=== PATIENT | female | born 1990 | race Caucasian/White ===

== ENCOUNTER 2017-07-30 13:40 | Inpatient (IN) | payer MEDICAID, OTHER ==
[2017-07-30] MEDS ORDERED: Sodium Chloride 0.9% 1,000 ML IV ONE (14:49)
--- NOTE | 2017-07-30 14:56 | C.PDOC ---
History Of Present Illness 27 y/o female with past medical history of possible Crohn's disease (prior evaluation in an ER, CT findings concerning for Crohn's but patient did not follow up with GI) presents to emergency department with complaint of c/o hematuria, bloody bowel movements and RLQ abdominal pain since yesterday. Abd pain is dull/achey and intermittent. Patient notes 2 different episodes; first had hematuria, then bloody BMs. She denies abdominal pain worsening with BM. ( +) 4 episodes of diarrhea yesterday. Patient denies fever, changes in diet, recent travel or sick contacts, fever/chills, dysuria, vomiting, chest pain, SOB. Time Seen by Provider: 07/30/17 14:03 Chief Complaint (Nursing): Abdominal Pain History Per: Patient History/Exam Limitations: no limitations Onset/Duration Of Symptoms: Days Current Symptoms Are (Timing): Still Present Severity: Mild Location Of Pain/Discomfort: Diffuse Radiation Of Pain To:: None Quality Of Discomfort: Sharp, "Pain" Associated Symptoms: Diarrhea, Urinary Symptoms (hematuria). denies: Fever, Vomiting, Back Pain Recent travel outside of the [place]: No Abnormal Vaginal Bleeding: No Past Medical History Reviewed: Historical Data, Nursing Documentation, Vital Signs Vital Signs: Last Vital Signs Temp 98.1 F 08/02/17 07:53 Pulse 61 08/02/17 07:53 Resp 20 08/02/17 07:53 BP 98/60 L 08/02/17 07:53 Pulse Ox 97 08/02/17 07:53 - Medical History PMH: Crohn's Disease (possible - no colonoscopy or GI followup) Other Surgeries: surgery as (4 months premature) for "twisted intestines " Family History: States: No Known Family Hx - Social History Hx Alcohol Use: No Hx Substance Use: No - Immunization History Hx Tetanus Toxoid Vaccination: No Hx Influenza Vaccination: No Hx Pneumococcal Vaccination: No Review Of Systems Except As Marked, All Systems Reviewed And Found Negative. Constitutional: Negative for: Fever, Chills Cardiovascular: Negative for: Chest Pain, Palpitations Respiratory: Negative for: Cough, Shortness of Breath, Wheezing Gastrointestinal: Positive for: Diarrhea, Hematochezia. Negative for: Nausea, Vomiting, Abdominal Pain, Melena Genitourinary: Positive for: Frequency, Hematuria. Negative for: Dysuria, Vaginal Discharge, Vaginal Bleeding Skin: Negative for: Rash Physical Exam - Physical Exam Appears: Well, Non-toxic, No Acute Distress Skin: Normal Color, Dry, No Rash Oral Mucosa: Moist Cardiovascular: Rhythm Regular Respiratory: Normal Breath Sounds, No Rales, No Rhonchi, No Wheezing Gastrointestinal/Abdominal: Bowel Sounds, Soft, Tenderness (mild diffuse TTP, (- ) McBurney's), No Distention, No Guarding, No Rebound Rectal: Normal Exam, Rectal Tone (normal), No Heme Positive, Heme Negative, No Hemorrhoids, No Mass, No Tenderness, Other (no fissuress) Back: Normal Inspection, No CVA Tenderness Extremity: Normal ROM Neurological/Psych: Oriented x3 ED Course And Treatment - Laboratory Results Result Diagrams: 08/02/17 07:50 08/02/17 07:50 O2 Sat by Pulse Oximetry: 100 (RA) Pulse Ox Interpretation: Normal - CT Scan/US ct scan abd/pelvis CT/US Interpretation: Accession No. : [id number]. Patient Name / ID : PATRICK RAM / [id number]. Exam Date : 07/30/2017 17:22:06 ( Approved ). Study Comment : Sex / Age : F / [id number]. Creator : Jennifer Reddy. Dictator : Amalia Villalba MD. Lawn Care Professional : Chief Payroll Clerk : Amalia Villalba MD. Approver2 : Report Date : 07/30/2017 17:43:14. My Comment : . This report is currently processing and HAS NOT BEEN OFFICIALLY SIGNED BY THE PHYSICIAN - ESTIMATED TIME OF APPROVAL IS 07/30/2017 18:11. PROCEDURE: CT Abdomen and Pelvis with contrast. HISTORY: ABD PAIN, RECTAL BLEEDING, POSSIBLE CROHNS. COMPARISON: None. TECHNIQUE: Contrast dose: 100 mL Omnipaque 350. Axial and reformatted coronal and sagittal CT images of the abdomen and pelvis were obtained after IV and oral contrast administration. Radiation dose: Total exam DLP = 390.77 mGy-cm. This CT exam was performed using one or more of the following dose reduction techniques: Automated exposure control, adjustment of the mA and/or kV according to patient size, and/ or use of iterative reconstruction technique. FINDINGS: LOWER THORAX: Unremarkable. LIVER: Unremarkable. No gross lesion or ductal dilatation. GALLBLADDER AND BILE DUCTS: Unremarkable. PANCREAS: Unremarkable. No gross lesion or ductal dilatation. SPLEEN: Unremarkable. ADRENALS: Unremarkable. No mass. KIDNEYS AND URETERS: Unremarkable. No hydronephrosis. No solid mass. VASCULATURE: Unremarkable. No aortic aneurysm. BOWEL: There is small bowel malrotation noted without evidence of obstruction. The entire small bowel loops are seen at the right abdomen and the large bowel loops are seen in the left abdomen. There is non opacified small bowel loop in the right mid abdomen demonstrate diffuse wall thickening. Focal wall thickening versus incomplete distention noted in the large bowel at the left mid to lower abdomen. No evidence of bowel obstruction. No evidence of pneumatosis. APPENDIX: The appendix is not clearly visualized in this exam. There is no evidence of appendicitis. . PERITONEUM: Unremarkable. No free fluid. No free air. LYMPH NODES: Unremarkable. No enlarged lymph nodes. BLADDER: Unremarkable. REPRODUCTIVE: Unremarkable. BONES: No acute fracture. OTHER FINDINGS: None. IMPRESSION: Findings suspicious for small bowel malrotation without evidence of volvulus or obstruction. Unopacified bowel loops demonstrate diffuse wall thickening noted at the mid right abdomen. The possibility of enteritis or small bowel fistula should be excluded. Further assessment of the small bowel is suggested. No evidence of free fluid free air or pneumatosis intestinalis. Progress Note: Blood work, UA, Upreg, CT abd/pelvis with PO/IV contrast ordered and reviewed. Patient given IV NS bolus. CT scan shows small bowel malrotation without volvulus or obstruction, as well as small bowel thickening concerning for enteritis vs fistula. 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 6: 45pm- Discussed patient with Dr. London, will see patient on consult, recommends keeping patient NPO at this time. Pending call back from surgery resident. - Physician Consult Information Physician Contacted: Sadi Hoyos Outcome Of Conversation: Discussed patient with hospitalist, she will sign out patient to night hospitalist team for admission. Recommends dose of rocpehin for UTI. Medical Decision Making Medical Decision Making: differential diagnoses considered: infectious vs inflammatory colitis, SBO, ischemic bowel, pyeleneprhitis, UTI, appendicitis, divertivulitis, kidney stones , ovarian torsion, ectopic , gastroenteritis Disposition - Disposition Disposition: HOSPITALIZED Disposition Time: 18:23 Condition: STABLE - Clinical Impression Clinical Impression: UTI (urinary tract infection), Regional enteritis of small bowel, Intestinal malrotation, Fistula - Scribe Statement The provider has reviewed the documentation as recorded by the Perezibkathleen Hi All medical record entries made by the Perezibkathleen were at my direction and personally dictated by me. I have reviewed the chart and agree that the record accurately reflects my personal performance of the history, physical exam, medical decision making, and the department course for this patient. I have also personally directed, reviewed, and agree with the discharge instructions and disposition. Decision To Admit - Pt Status Changed To: Hospital Disposition Of: Inpatient - Admit Certification Admit to Inpatient:: After my assessment, the patient will require hospitalization for at least two midnights. This is because of the severity of symptoms shown, intensity of services needed, and/or the medical risk in this patient being treated as an outpatient. - InPatient: Physician Admission Certification:: see notes - . Bed Request Type: Regular Admitting Physician: Sadi Hoyos Patient Diagnosis: UTI (urinary tract infection), Regional enteritis of small bowel, Fistula, Intestinal malrotation
[2017-07-30] MEDS ORDERED: Iohexol 240 (50 ml) PO STA (14:57)
[2017-07-30 14:58] LABS: BASO # 0.1 K/uL (0.0-0.2); BASO % 0.7 % (0.0-2.0); EOS # 0.1 K/uL (0.0-0.7); EOS % 1.2 % (0.0-4.0); HEMATOCRIT 39.9 % (34.0-47.0); LYMPH # 3.1 K/uL (1.0-4.3); LYMPH % 40.4 % (20.0-40.0); MEAN CELL VOLUME 94.5 fL (81.0-99.0); MEAN CORPUSCULAR HEMOGLOBIN 32.2 pg (27.0-31.0); MEAN CORPUSCULAR HGB CONC 34.1 g/dL (33.0-37.0); MEAN PLATELET VOLUME 7.9 fL (7.2-11.7); MONO # 0.5 K/uL (0.0-0.8); MONO % 6.8 % (0.0-10.0); RED CELL DISTRIBUTION WIDTH 12.8 % (11.5-14.5); WHITE BLOOD COUNT 7.6 K/uL (4.8-10.8)
[2017-07-30 15:08] LABS: CHLORIDE 101 mmol/L (98-107); SODIUM 135 mmol/L (132-148)
[2017-07-30 15:09] LABS: POTASSIUM 3.8 mmol/L (3.6-5.2)
[2017-07-30 15:11] LABS: ALB/GLOB RATIO 1.3 (1.0-2.1); ALKALINE PHOSPHATASE 52 U/L (38-126); ALT/SGPT 32 U/L (9-52); AST/SGOT 21 U/L (14-36); BILIRUBIN,TOTAL 0.9 mg/dL (0.2-1.3); BLOOD UREA NITROGEN 14 mg/dL (7-17); CARBON DIOXIDE 25 mmol/L (22-30); GFR AFRICAN-AMERICAN > 60; GLUCOSE,RANDOM 76 mg/dL (65-105); TOTAL PROTEIN 7.6 g/dL (6.3-8.3)
[2017-07-30 15:12] LABS: CALCIUM 8.7 mg/dl (8.6-10.4)
[2017-07-30] MEDS ORDERED: Iohexol 240 (50 ml) ONE (15:40)
[2017-07-30 16:03] LABS: RBC URINE 18 /hpf (0-3); URINE BACTERIA MOD (<OCC); URINE BILIRUBIN NEGATIVE (NEGATIVE); URINE BLOOD 3+ (NEGATIVE); URINE COLOR Yellow (YELLOW); URINE GLUCOSE (UA) NORMAL (Normal); URINE KETONE 1+ mg/dL (NEGATIVE); URINE LEUKOCYTE ESTERASE 3+ Leu/uL (Negative); URINE PROTEIN NEGATIVE (NEGATIVE); WBC URINE 33 /hpf (0-5)
[2017-07-30] MEDS ORDERED: Iohexol 350mg/ml 100 ML ONE (16:41)
--- NOTE | 2017-07-30 18:07 | CT ---
PROCEDURE: CT Abdomen and Pelvis with contrast HISTORY: ABD PAIN, RECTAL BLEEDING, POSSIBLE CROHNS COMPARISON: None. TECHNIQUE: Contrast dose: 100 mL Omnipaque 350. Axial and reformatted coronal and sagittal CT images of the abdomen and pelvis were obtained after IV and oral contrast administration. Radiation dose: Total exam DLP = 390.77 mGy-cm. This CT exam was performed using one or more of the following dose reduction techniques: Automated exposure control, adjustment of the mA and/or kV according to patient size, and/or use of iterative reconstruction technique. FINDINGS: LOWER THORAX: Unremarkable. LIVER: Unremarkable. No gross lesion or ductal dilatation. GALLBLADDER AND BILE DUCTS: Unremarkable. PANCREAS: Unremarkable. No gross lesion or ductal dilatation. SPLEEN: Unremarkable. ADRENALS: Unremarkable. No mass. KIDNEYS AND URETERS: Unremarkable. No hydronephrosis. No solid mass. VASCULATURE: Unremarkable. No aortic aneurysm. BOWEL: There is small bowel malrotation noted without evidence of obstruction. The entire small bowel loops are seen at the right abdomen and the large bowel loops are seen in the left abdomen. There is non opacified small bowel loop in the right mid abdomen demonstrate diffuse wall thickening. Focal wall thickening versus incomplete distention noted in the large bowel at the left mid to lower abdomen. No evidence of bowel obstruction. No evidence of pneumatosis. APPENDIX: The appendix is not clearly visualized in this exam. There is no evidence of appendicitis. . PERITONEUM: Unremarkable. No free fluid. No free air. LYMPH NODES: Unremarkable. No enlarged lymph nodes. BLADDER: Unremarkable. REPRODUCTIVE: Unremarkable. BONES: No acute fracture. OTHER FINDINGS: None. IMPRESSION: Findings suspicious for small bowel malrotation without evidence of volvulus or obstruction. Unopacified bowel loops demonstrate diffuse wall thickening noted at the mid right abdomen. The possibility of enteritis or small bowel fistula should be excluded. Further assessment of the small bowel is suggested. No evidence of free fluid free air or pneumatosis intestinalis.
[2017-07-30] MEDS ORDERED: cefTRIAXone IV 1 gm in Dextros 50 ML IVPB ONE (18:42)
[2017-07-30] MEDS ORDERED: Dextrose 5%/0.9% NS 1,000 ML IV ONE (18:44)
--- NOTE | 2017-07-30 19:38 | CP.PCM.CON ---
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 Pt presents today with 24 hour history of abdominal pain accompanied by bright red blood per rectum during bowel movements. pt reports she had 5 episodes of diarrhea yesterday accompanied by blood, as well as hematuria. She has 4/10 pain in bilateral lower quadrants which is worse with defecation. She has not been able to eat because anytime she does she immediately has to move her bowels. She denies any associated fevers, chills, nausea, emesis, sob or chest pain. Pt states she is currently going through a divorce and has been highly stressed lately. Of note, pt was seen in a different ED in 2008 with similar symptoms. At that time she was told she may have Crohns, but due to financial reasons did not pursue further work-up or treatment. Since that time this is her first episode of GI bleeding, but she has continued to have alternating constipation and diarrhea, with intermittent nausea. Her symptoms seem to be triggered by certain food groups which she has attempted to avoid. PMH/PSH: as above Social: recently began smoking again Review of Systems - Review of Systems All systems: reviewed and no additional remarkable complaints except (as per hpi ) Past Patient History - Past Social History Smoking Status: Light Smoker < 10 Cigarettes Daily - GASTROINTESTINAL Hx Crohn's Disease: Yes (possible - no colonoscopy or GI followup) - PSYCHIATRIC Hx Substance Use: No - SURGICAL HISTORY Hx Surgeries: Yes Hx Orthopedic Surgery: Yes (Left knee SX) Other/Comment: abdl surgery x2 Meds Allergies/Adverse Reactions: Allergies Allergy/AdvReac Type Severity Reaction Status Date / Time No Known Allergies Allergy Verified 07/30/17 14:03 - Medications Medications: Current Medications Dextrose/Sodium Chloride (Dextrose 5%/0.9% Ns 1000 Ml) 1,000 mls @ 100 mls/hr IV .Q10H ONE Stop: 07/31/17 04:43 Last Admin: 07/30/17 19:25 Dose: 100 mls/hr Physical Exam - Constitutional Appears: Non-toxic, No Acute Distress - Head Exam Head Exam: ATRAUMATIC - Eye Exam Eye Exam: Normal appearance. absent: Scleral icterus Pupil Exam: PERRL - ENT Exam ENT Exam: Mucous Membranes Moist - Respiratory Exam Respiratory Exam: absent: Accessory Muscle Use, Respiratory Distress - Cardiovascular Exam Cardiovascular Exam: REGULAR RHYTHM. absent: Tachycardia - GI/Abdominal Exam GI & Abdominal Exam: Soft, Tenderness (LLQ + RLQ, minimal). absent: Distended, Firm, Guarding, Hernia, Mass, Rigid - Rectal Exam Rectal Exam: Deferred - Extremities Exam Extremities exam: Negative for: pedal edema - Neurological Exam Neurological exam: Alert, Oriented x3 - Psychiatric Exam Psychiatric exam: Normal Affect, Normal Mood - Skin Skin Exam: Normal Color, Warm Results - Vital Signs Recent Vital Signs: Last Vital Signs Temp 98.2 F 07/30/17 18:57 Pulse 60 07/30/17 18:57 Resp 18 07/30/17 18:57 BP 128/66 07/30/17 18:57 Pulse Ox 99 07/30/17 18:57 - Labs Result Diagrams: 07/30/17 14:53 07/30/17 14:53 Labs: Laboratory Results - last 24 hr 07/30/17 07/30/17 07/30/17 14:53 14:53 15:34 WBC 7.6 RBC 4.22 Hgb 13.6 Hct 39.9 MCV 94.5 MCH 32.2 H MCHC 34.1 RDW 12.8 Plt Count 363 MPV 7.9 Neut % (Auto) 50.9 Lymph % (Auto) 40.4 H Gregory % (Auto) 6.8 Eos % (Auto) 1.2 Baso % (Auto) 0.7 Neut # 3.9 Lymph # 3.1 Gregory # 0.5 Eos # 0.1 Baso # 0.1 Sodium 135 Potassium 3.8 Chloride 101 Carbon Dioxide 25 Anion Gap 13 BUN 14 Creatinine 0.7 Est GFR ( Amer) > 60 Est GFR (Non-Af Amer) > 60 Random Glucose 76 Calcium 8.7 Total Bilirubin 0.9 AST 21 ALT 32 Alkaline Phosphatase 52 Total Protein 7.6 Albumin 4.3 Globulin 3.4 Albumin/Globulin Ratio 1.3 Lipase 31 Urine Color Yellow Urine Clarity Hazy Urine pH 5.0 Ur Specific [place] 1.025 Urine Protein Negative Urine Glucose (UA) Normal Urine Ketones 1+ H Urine Blood 3+ H Urine Nitrate Positive H Urine Bilirubin Negative Urine Urobilinogen 2.0 H Ur Leukocyte Esterase 3+ H Urine WBC (Auto) 33 H Urine RBC (Auto) 18 H Ur Squamous Epith Cells 19 H Urine Bacteria Mod H Urine HCG, Qual Negative Stool Occult Blood 07/30/17 16:17 WBC RBC Hgb Hct MCV MCH MCHC RDW Plt Count MPV Neut % (Auto) Lymph % (Auto) Gregory % (Auto) Eos % (Auto) Baso % (Auto) Neut # Lymph # Gregory # Eos # Baso # Sodium Potassium Chloride Carbon Dioxide Anion Gap BUN Creatinine Est GFR ( Amer) Est GFR (Non-Af Amer) Random Glucose Calcium Total Bilirubin AST ALT Alkaline Phosphatase Total Protein Albumin Globulin Albumin/Globulin Ratio Lipase Urine Color Urine Clarity Urine pH Ur Specific [place] Urine Protein Urine Glucose (UA) Urine Ketones Urine Blood Urine Nitrate Urine Bilirubin Urine Urobilinogen Ur Leukocyte Esterase Urine WBC (Auto) Urine RBC (Auto) Ur Squamous Epith Cells Urine Bacteria Urine HCG, Qual Stool Occult Blood Negative Assessment & Plan - Assessment and Plan (Free Text) Assessment: 27F with abdominal pain and lower GI bleeding Plan: monitor for further GI bleeding Trend H/H IV fluids, abx, anti-emetics and pain mgmt PRN GI consult no immediate surgical intervention required will cont to follow d/w Dr Lita Berkowitz, PGY3 <Aditya London B - Last Filed: 07/31/17 21:28> Meds - Medications Medications: Current Medications Metronidazole (Flagyl) 500 mg in 100 mls @ 100 mls/hr IVPB Q8 [facility] Last Admin: 07/31/17 21:00 Dose: 100 mls/hr Ceftriaxone Sodium (Rocephin Iv 1 Gm Duplex) 50 mls @ 100 mls/hr IVPB Q12H [facility] Last Admin: 07/31/17 19:35 Dose: 100 mls/hr Morphine Sulfate (Morphine) 2 mg IVP Q4 PRN PRN Reason: Pain, Mild (1-3) Ondansetron HCl (Zofran Inj) 4 mg IVP Q4H PRN PRN Reason: Nausea/Vomiting Pneumococcal Polyvalent Vaccine (Pneumovax 23 Vaccine) 0.5 ml IM .ONCE ONE Stop: 08/01/17 10:01 Results - Vital Signs Recent Vital Signs: Last Vital Signs Temp 98.3 F 07/31/17 16:40 Pulse 54 L 07/31/17 16:40 Resp 20 07/31/17 16:40 BP 102/52 L 07/31/17 16:40 Pulse Ox 98 07/31/17 16:40 - Labs Result Diagrams: 07/31/17 08:07 07/31/17 08:07 Labs: Laboratory Results - last 24 hr 07/30/17 07/30/17 07/31/17 21:50 21:50 08:07 WBC 7.6 RBC 4.10 Hgb 13.3 Hct 38.4 MCV 93.6 MCH 32.5 H MCHC 34.8 RDW 12.7 Plt Count 338 MPV 7.8 Neut % (Auto) 63.3 Lymph % (Auto) 28.6 Gregory % (Auto) 6.4 Eos % (Auto) 1.2 Baso % (Auto) 0.5 Neut # 4.8 Lymph # 2.2 Gregory # 0.5 Eos # 0.1 Baso # 0.0 ESR 5 Sodium Potassium Chloride Carbon Dioxide Anion Gap BUN Creatinine Est GFR ( Amer) Est GFR (Non-Af Amer) Random Glucose Calcium Total Bilirubin AST ALT Alkaline Phosphatase C-React Prot High Sens 0.21 L Total Protein Albumin Globulin Albumin/Globulin Ratio 07/31/17 08:07 WBC RBC Hgb Hct MCV MCH MCHC RDW Plt Count MPV Neut % (Auto) Lymph % (Auto) Gregory % (Auto) Eos % (Auto) Baso % (Auto) Neut # Lymph # Gregory # Eos # Baso # ESR Sodium 135 Potassium 3.6 Chloride 104 Carbon Dioxide 22 Anion Gap 13 BUN 7 Creatinine 0.6 L Est GFR ( Amer) > 60 Est GFR (Non-Af Amer) > 60 Random Glucose 88 Calcium 8.0 L Total Bilirubin 1.0 AST 16 ALT 34 Alkaline Phosphatase 43 C-React Prot High Sens Total Protein 6.8 Albumin 3.7 Globulin 3.2 Albumin/Globulin Ratio 1.2 Attending/Attestation - Attestation I have personally seen and examined this patient.: Yes I have fully participated in the care of the patient.: Yes I have reviewed all pertinent clinical information: Yes Notes (Text): Pt was seen and examined at bedside Agree with above note and assessment Pt with Abdominal pain and CT scan finding of Enteritis or crohns dis Abdominal tenderness present Labs and radiology reviewed. NPO, IVF C/W IV antibiotics Plan d.w pt in detail. Risk and benefit explained in detail
--- NOTE | 2017-07-30 20:32 | CP.PCM.HP ---
<Americo Bradley - Last Filed: 07/30/17 20:48> History of Present Illness - History of Present Illness History of Present Illness: CC "my belly hurts" This is a 27 year old female who presents to the ER today with sharp right lower quadrant pain, rated a 10/10, which began this morning while she was at work. She reports that in the past 24 hours she had 5 episodes of bloody diarrhea and 2 episodes of blood in her urine. Given the bloody diarrhea and hematuria and degree of pain in the RLQ she decided to come to the ER today. 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 She reports that she's had bouts of mild RLQ and LLQ pain all her life which she attributes to her surgery at and to having a "sensitive stomach". She says this mild chronic intermittent abdominal pain is provoked by eating spicy foods, by the fact that she is lactose intolerant or being dehydrated, but that it usually passes on its own. She reports that in 2008 she went to a hospital for similar complaints and was told that she may have Crohns Disease but she never followed-up with a specialist. She endorses a 20 lb weight loss in the past 3 months which she attributes to increasing frequency of diarrhea, loss of appetite, and stress as she is currently going thru a divorce. She also reports fatigue for the past few weeks. She denies fever, chills, rashes, arthritis, eye disturbances, nsaid use, recent travel, sick contacts, or feces or gas exiting her vagina. 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 Present on Admission - Present on Admission Any Indicators Present on Admission: No Review of Systems - Constitutional Constitutional: Fatigue, Headache, Weight Loss. absent: Chills, Fever, Night Sweats, Weakness Additional comments: headache in cerebellum region - EENT Eyes: Decreased Night Vision. absent: Change in Vision Ears: absent: Ear Pain Nose/Mouth/Throat: absent: Nasal Congestion - Cardiovascular Cardiovascular: absent: Chest Pain, Diaphoresis, Palpitations - Respiratory Respiratory: absent: Cough, Dyspnea, Dyspnea on Exertion, Wheezing - Gastrointestinal Gastrointestinal: As Per HPI, Abdominal Pain, Cramping, Diarrhea, Hematochezia, Nausea. absent: Belching, Coffee Ground Emesis, Constipation, Vomiting - Genitourinary Genitourinary: Dysuria, Hematuria. absent: Urinary Frequency - Musculoskeletal Musculoskeletal: absent: Arthralgias, Back Pain, Muscle Cramps, Muscle Weakness - Integumentary Integumentary: absent: Lesions - Neurological Neurological: absent: Disequilibrium, Dizziness, Numbness Past Patient History - Past Social History Smoking Status: Light Smoker < 10 Cigarettes Daily - GASTROINTESTINAL Hx Crohn's Disease: Yes (possible - no colonoscopy or GI followup) - PSYCHIATRIC Hx Substance Use: No - SURGICAL HISTORY Hx Surgeries: Yes Hx Orthopedic Surgery: Yes (Left knee SX) Other/Comment: abdl surgery x2 Meds Allergies/Adverse Reactions: Allergies Allergy/AdvReac Type Severity Reaction Status Date / Time No Known Allergies Allergy Verified 07/30/17 14:03 Physical Exam - Constitutional Appears: Well, Non-toxic, No Acute Distress - Head Exam Head Exam: ATRAUMATIC, NORMAL INSPECTION - Eye Exam Eye Exam: EOMI Pupil Exam: PERRL - ENT Exam ENT Exam: Mucous Membranes Moist - Neck Exam Neck exam: Positive for: Normal Inspection. Negative for: Lymphadenopathy, Tenderness - Respiratory Exam Respiratory Exam: Clear to Auscultation Bilateral, NORMAL BREATHING PATTERN. absent: Rales, Rhonchi, Wheezes - Cardiovascular Exam Cardiovascular Exam: REGULAR RHYTHM, +S1, +S2. absent: Bradycardia, Tachycardia , Irregular Rhythm, JVD, Systolic Murmur - GI/Abdominal Exam GI & Abdominal Exam: Hyperactive Bowel Sounds, Soft, Tenderness. absent: Distended, Firm, Guarding, Hernia, Mass, Pulsatile Mass, Rebound, Rigid - Rectal Exam Rectal Exam: absent: Bloody Stool, Hemorrhoids Additional comments: No masses palpated, no skin tags, no blood seen - Extremities Exam Extremities exam: Positive for: normal inspection. Negative for: calf tenderness, pedal edema - Back Exam Back exam: NORMAL INSPECTION. absent: CVA tenderness (L), CVA tenderness (R) - Neurological Exam Neurological exam: Alert, Normal Gait, Oriented x3 - Psychiatric Exam Psychiatric exam: Normal Affect, Normal Mood - Skin Skin Exam: Intact, Normal Color, Warm Additional comments: 6 inch transverse scar in suprapubic region below umbilicus Results - Vital Signs Recent Vital Signs: Last Vital Signs Temp 98.2 F 07/30/17 18:57 Pulse 60 07/30/17 18:57 Resp 18 07/30/17 18:57 BP 128/66 07/30/17 18:57 Pulse Ox 99 07/30/17 18:57 - Labs Result Diagrams: 07/30/17 14:53 07/30/17 14:53 Labs: Laboratory Results - last 24 hr 07/30/17 07/30/17 07/30/17 14:53 14:53 15:34 WBC 7.6 RBC 4.22 Hgb 13.6 Hct 39.9 MCV 94.5 MCH 32.2 H MCHC 34.1 RDW 12.8 Plt Count 363 MPV 7.9 Neut % (Auto) 50.9 Lymph % (Auto) 40.4 H [place] % (Auto) 6.8 Eos % (Auto) 1.2 Baso % (Auto) 0.7 Neut # 3.9 Lymph # 3.1 [place] # 0.5 Eos # 0.1 Baso # 0.1 Sodium 135 Potassium 3.8 Chloride 101 Carbon Dioxide 25 Anion Gap 13 BUN 14 Creatinine 0.7 Est GFR ( Amer) > 60 Est GFR (Non-Af Amer) > 60 Random Glucose 76 Calcium 8.7 Total Bilirubin 0.9 AST 21 ALT 32 Alkaline Phosphatase 52 Total Protein 7.6 Albumin 4.3 Globulin 3.4 Albumin/Globulin Ratio 1.3 Lipase 31 Urine Color Yellow Urine Clarity Hazy Urine pH 5.0 Ur Specific [place] 1.025 Urine Protein Negative Urine Glucose (UA) Normal Urine Ketones 1+ H Urine Blood 3+ H Urine Nitrate Positive H Urine Bilirubin Negative Urine Urobilinogen 2.0 H Ur Leukocyte Esterase 3+ H Urine WBC (Auto) 33 H Urine RBC (Auto) 18 H Ur Squamous Epith Cells 19 H Urine Bacteria Mod H Urine HCG, Qual Negative Stool Occult Blood 07/30/17 16:17 WBC RBC Hgb Hct MCV MCH MCHC RDW Plt Count MPV Neut % (Auto) Lymph % (Auto) [place] % (Auto) Eos % (Auto) Baso % (Auto) Neut # Lymph # [place] # Eos # Baso # Sodium Potassium Chloride Carbon Dioxide Anion Gap BUN Creatinine Est GFR ( Amer) Est GFR (Non-Af Amer) Random Glucose Calcium Total Bilirubin AST ALT Alkaline Phosphatase Total Protein Albumin Globulin Albumin/Globulin Ratio Lipase Urine Color Urine Clarity Urine pH Ur Specific [place] Urine Protein Urine Glucose (UA) Urine Ketones Urine Blood Urine Nitrate Urine Bilirubin Urine Urobilinogen Ur Leukocyte Esterase Urine WBC (Auto) Urine RBC (Auto) Ur Squamous Epith Cells Urine Bacteria Urine HCG, Qual Stool Occult Blood Negative Assessment & Plan (1) Abdominal pain Assessment and Plan: Surgical consult, Dr London GI consult, Dr Stevenson Per surgery, no immediate surgical intervention required LFTs WNL F/U Blood Cx F/U Urine Cx F/U ESR F/U CRP F/U Stool Cx F/U Ova and Parasite F/U C Diff F/U Fecal leukocytes Meds: Ceftriaxone 1gm IVPB Q12H started 07/30 Metronidazole 500mg IVPB Q8H started 07/30 Ondansetron 4mg IVP Q4H prn Morphine 2mg IVP Q4H prn Dextrose 5%/NS at 100cc/hr Imaging: CT abd/pelvis w/ contrast 07/30: IMPRESSION: Findings suspicious for small bowel malrotation without evidence of volvulus or obstruction. Unopacified bowel loops demonstrate diffuse wall thickening noted at the mid right abdomen. The possibility of enteritis or small bowel fistula should be excluded. Further assessment of the small bowel is suggested. No evidence of free fluid free air or pneumatosis intestinalis. Status: Acute (2) Bright red blood per rectum Assessment and Plan: Hgb 13.6 on admission FOBT negative See plan for abdominal pain Status: Acute (3) Hematuria Assessment and Plan: UA on admission: 1+ ketones, 3+ blood, (+) nitrate, (+) urobilinogen, 3+ leukocyte esterase, 33 WBC, 18 RBC, 19 squamous epith cells, moderate bacteria Urine HCG (-) Ceftriaxone 1gm IVPB Q12H started 07/30 Status: Acute (4) Prophylactic measure Assessment and Plan: GI: protonix 40mg PO QD DVT: not indicated, encourage ambulation Diet: NPO for now Status: Acute <Doyle Edmond - Last Filed: 07/31/17 06:24> Results - Vital Signs Recent Vital Signs: Last Vital Signs Temp 98.2 F 07/30/17 23:53 Pulse 69 07/30/17 23:53 Resp 20 07/30/17 23:53 BP 104/66 07/30/17 23:53 Pulse Ox 97 07/30/17 23:53 - Labs Result Diagrams: 07/30/17 14:53 07/30/17 14:53 Labs: Laboratory Results - last 24 hr 07/30/17 07/30/17 07/30/17 14:53 14:53 15:34 WBC 7.6 RBC 4.22 Hgb 13.6 Hct 39.9 MCV 94.5 MCH 32.2 H MCHC 34.1 RDW 12.8 Plt Count 363 MPV 7.9 Neut % (Auto) 50.9 Lymph % (Auto) 40.4 H [place] % (Auto) 6.8 Eos % (Auto) 1.2 Baso % (Auto) 0.7 Neut # 3.9 Lymph # 3.1 [place] # 0.5 Eos # 0.1 Baso # 0.1 ESR Sodium 135 Potassium 3.8 Chloride 101 Carbon Dioxide 25 Anion Gap 13 BUN 14 Creatinine 0.7 Est GFR ( Amer) > 60 Est GFR (Non-Af Amer) > 60 Random Glucose 76 Calcium 8.7 Total Bilirubin 0.9 AST 21 ALT 32 Alkaline Phosphatase 52 C-React Prot High Sens Total Protein 7.6 Albumin 4.3 Globulin 3.4 Albumin/Globulin Ratio 1.3 Lipase 31 Urine Color Yellow Urine Clarity Hazy Urine pH 5.0 Ur Specific [place] 1.025 Urine Protein Negative Urine Glucose (UA) Normal Urine Ketones 1+ H Urine Blood 3+ H Urine Nitrate Positive H Urine Bilirubin Negative Urine Urobilinogen 2.0 H Ur Leukocyte Esterase 3+ H Urine WBC (Auto) 33 H Urine RBC (Auto) 18 H Ur Squamous Epith Cells 19 H Urine Bacteria Mod H Urine HCG, Qual Negative Stool Occult Blood 07/30/17 07/30/17 07/30/17 16:17 21:50 21:50 WBC RBC Hgb Hct MCV MCH MCHC RDW Plt Count MPV Neut % (Auto) Lymph % (Auto) [place] % (Auto) Eos % (Auto) Baso % (Auto) Neut # Lymph # [place] # Eos # Baso # ESR 5 Sodium Potassium Chloride Carbon Dioxide Anion Gap BUN Creatinine Est GFR ( Amer) Est GFR (Non-Af Amer) Random Glucose Calcium Total Bilirubin AST ALT Alkaline Phosphatase C-React Prot High Sens 0.21 L Total Protein Albumin Globulin Albumin/Globulin Ratio Lipase Urine Color Urine Clarity Urine pH Ur Specific [place] Urine Protein Urine Glucose (UA) Urine Ketones Urine Blood Urine Nitrate Urine Bilirubin Urine Urobilinogen Ur Leukocyte Esterase Urine WBC (Auto) Urine RBC (Auto) Ur Squamous Epith Cells Urine Bacteria Urine HCG, Qual Stool Occult Blood Negative Assessment & Plan - Date & Time Date: 07/31/17 (I have seen and examined the patient. I agree with the findings and plan of care as documented by Dr. Bradley. Patient with abdominal pain. History of bowel rotation. Consult to surgery and GI. also with UTI with hematuria. Rocephin for now. Monitor for acute changes.) Time: 06:23 Attending/Attestation - Attestation I have personally seen and examined this patient.: Yes I have fully participated in the care of the patient.: Yes I have reviewed all pertinent clinical information: Yes
[2017-07-30] MEDS: metroNIDAZOLE IV 500 mg/100 ml 500 MG/100 ML BAG IVPB SCH (22:01)
[2017-07-30 22:31] VITALS: RESP 20
[2017-07-31] MEDS: metroNIDAZOLE IV 500 mg/100 ml 500 MG/100 ML BAG IVPB SCH ×3 (05:18→21:00)
[2017-07-31] MEDS: cefTRIAXone IV 1 gm in Dextros 50 ML IVPB SCH ×2 (06:43→19:35)
[2017-07-31 08:29] LABS: BASO % 0.5 % (0.0-2.0); EOS # 0.1 K/uL (0.0-0.7); EOS % 1.2 % (0.0-4.0); HEMATOCRIT 38.4 % (34.0-47.0); LYMPH # 2.2 K/uL (1.0-4.3); LYMPH % 28.6 % (20.0-40.0); MEAN CELL VOLUME 93.6 fL (81.0-99.0); MEAN CORPUSCULAR HEMOGLOBIN 32.5 pg (27.0-31.0); MEAN CORPUSCULAR HGB CONC 34.8 g/dL (33.0-37.0); MEAN PLATELET VOLUME 7.8 fL (7.2-11.7); MONO # 0.5 K/uL (0.0-0.8); MONO % 6.4 % (0.0-10.0); NRBC % 0.1 % (0.0-2.0); RED CELL DISTRIBUTION WIDTH 12.7 % (11.5-14.5); WHITE BLOOD COUNT 7.6 K/uL (4.8-10.8)
--- NOTE | 2017-07-31 08:29 | CP.PCM.PN ---
<Calvin Berkowitz - Last Filed: 07/31/17 08:26> Subjective - Date & Time of Evaluation Date of Evaluation: 07/31/17 Time of Evaluation: 08:26 - Subjective Subjective: Gen Sx: Dr London Pt S&E. NAEO. No further bowel movements since admission. FOBT yesterday was negative. Pt reports abdominal pain is improving but still w/ suprapubic tenderness. No further hematuria. Pt is requesting food. Denies N/V, fevers or chills. Objective - Vital Signs/Intake and Output Vital Signs (last 24 hours): Temp Pulse Resp BP Pulse Ox 98.4 F 58 L 20 118/72 97 07/31/17 08:00 07/31/17 08:00 07/31/17 08:00 07/31/17 08:00 07/31/17 08:00 Intake and Output: 07/31/17 07/31/17 06:59 18:59 Intake Total 300 Balance 300 - Medications Medications: Current Medications Metronidazole (Flagyl) 500 mg in 100 mls @ 100 mls/hr IVPB Q8 [facility] Last Admin: 07/31/17 05:18 Dose: 100 mls/hr Ceftriaxone Sodium (Rocephin Iv 1 Gm Duplex) 50 mls @ 100 mls/hr IVPB Q12H [facility] Last Admin: 07/31/17 06:43 Dose: 100 mls/hr Morphine Sulfate (Morphine) 2 mg IVP Q4 PRN PRN Reason: Pain, Mild (1-3) Ondansetron HCl (Zofran Inj) 4 mg IVP Q4H PRN PRN Reason: Nausea/Vomiting Pneumococcal Polyvalent Vaccine (Pneumovax 23 Vaccine) 0.5 ml IM .ONCE ONE Stop: 08/01/17 10:01 - Labs Labs: 07/30/17 14:53 07/30/17 14:53 - Constitutional Appears: Non-toxic, No Acute Distress - ENT Exam ENT Exam: Mucous Membranes Moist - Respiratory Exam Respiratory Exam: absent: Accessory Muscle Use, Respiratory Distress - Cardiovascular Exam Cardiovascular Exam: REGULAR RHYTHM - GI/Abdominal Exam GI & Abdominal Exam: Soft, Tenderness (suprapubic, LLQ improved). absent: Distended, Firm, Guarding, Rigid, Hernia, Mass - Neurological Exam Neurological Exam: Alert, Awake, Oriented x3 - Psychiatric Exam Psychiatric exam: Normal Affect, Normal Mood - Skin Skin Exam: Normal Color, Warm Assessment and Plan - Assessment and Plan (Free Text) Assessment: 27F with previous lower GI bleed; resolving Plan: adv to CLD continue to trend H/H further mgmt pending GI recommendations - pt may need outpatient colonoscopy r/ o UC vs Crohns no plans for surgical intervention will d/w Dr Lita Berkowitz, PGY3 <Aditya London B - Last Filed: 07/31/17 21:31> Objective - Vital Signs/Intake and Output Vital Signs (last 24 hours): Temp Pulse Resp BP Pulse Ox 98.3 F 54 L 20 102/52 L 98 07/31/17 16:40 07/31/17 16:40 07/31/17 16:40 07/31/17 16:40 07/31/17 16:40 Intake and Output: 07/31/17 08/01/17 18:59 06:59 Intake Total 290 Balance 290 - Medications Medications: Current Medications Metronidazole (Flagyl) 500 mg in 100 mls @ 100 mls/hr IVPB Q8 [facility] Last Admin: 07/31/17 21:00 Dose: 100 mls/hr Ceftriaxone Sodium (Rocephin Iv 1 Gm Duplex) 50 mls @ 100 mls/hr IVPB Q12H [facility] Last Admin: 07/31/17 19:35 Dose: 100 mls/hr Morphine Sulfate (Morphine) 2 mg IVP Q4 PRN PRN Reason: Pain, Mild (1-3) Ondansetron HCl (Zofran Inj) 4 mg IVP Q4H PRN PRN Reason: Nausea/Vomiting Pneumococcal Polyvalent Vaccine (Pneumovax 23 Vaccine) 0.5 ml IM .ONCE ONE Stop: 08/01/17 10:01 - Labs Labs: 07/31/17 08:07 07/31/17 08:07 Attending/Attestation - Attestation I have personally seen and examined this patient.: Yes I have fully participated in the care of the patient.: Yes I have reviewed all pertinent clinical information, including history, physical exam and plan: Yes Notes (Text): Pt was seen and examined at bedside Agree with above note and assessment Pt is improving clinically Mild abdominal tenderness present full liquid diet GI consult C/W IV antibiotics Plan d.w pt in detail. Risk and benefit explained in detail
[2017-07-31 08:33] LABS: CHLORIDE 104 mmol/L (98-107)
[2017-07-31 08:34] LABS: POTASSIUM 3.6 mmol/L (3.6-5.2); SODIUM 135 mmol/L (132-148)
[2017-07-31 08:36] LABS: ALB/GLOB RATIO 1.2 (1.0-2.1); ALKALINE PHOSPHATASE 43 U/L (38-126); AST/SGOT 16 U/L (14-36); BLOOD UREA NITROGEN 7 mg/dL (7-17); CARBON DIOXIDE 22 mmol/L (22-30); GFR AFRICAN-AMERICAN > 60; GLUCOSE,RANDOM 88 mg/dL (65-105); TOTAL PROTEIN 6.8 g/dL (6.3-8.3)
[2017-07-31 08:37] LABS: ALT/SGPT 34 U/L (9-52)
--- NOTE | 2017-07-31 14:20 | CP.PCM.PN ---
Subjective - Date & Time of Evaluation Date of Evaluation: 07/31/17 Time of Evaluation: 14:15 - Subjective Subjective: Patient seen and examined at bedside. Doing well. States her belly pain is improving. Wants to eat more. No other complaints at this time Objective - Vital Signs/Intake and Output Vital Signs (last 24 hours): Temp Pulse Resp BP Pulse Ox 98.4 F 58 L 20 118/72 97 07/31/17 08:00 07/31/17 08:00 07/31/17 08:00 07/31/17 08:00 07/31/17 08:00 Intake and Output: 07/31/17 07/31/17 06:59 18:59 Intake Total 300 Balance 300 - Medications Medications: Current Medications Metronidazole (Flagyl) 500 mg in 100 mls @ 100 mls/hr IVPB Q8 [facility] Last Admin: 07/31/17 14:00 Dose: 100 mls/hr Ceftriaxone Sodium (Rocephin Iv 1 Gm Duplex) 50 mls @ 100 mls/hr IVPB Q12H [facility] Last Admin: 07/31/17 06:43 Dose: 100 mls/hr Morphine Sulfate (Morphine) 2 mg IVP Q4 PRN PRN Reason: Pain, Mild (1-3) Ondansetron HCl (Zofran Inj) 4 mg IVP Q4H PRN PRN Reason: Nausea/Vomiting Pneumococcal Polyvalent Vaccine (Pneumovax 23 Vaccine) 0.5 ml IM .ONCE ONE Stop: 08/01/17 10:01 - Labs Labs: 07/31/17 08:07 07/31/17 08:07 - Additional Findings Additional findings: - Constitutional Appears: Well, Non-toxic, No Acute Distress - Head Exam Head Exam: ATRAUMATIC, NORMAL INSPECTION - Eye Exam Eye Exam: EOMI Pupil Exam: PERRL - ENT Exam ENT Exam: Mucous Membranes Moist - Neck Exam Neck exam: Positive for: Normal Inspection. Negative for: Lymphadenopathy, Tenderness - Respiratory Exam Respiratory Exam: Clear to Auscultation Bilateral, NORMAL BREATHING PATTERN. absent: Rales, Rhonchi, Wheezes - Cardiovascular Exam Cardiovascular Exam: REGULAR RHYTHM, +S1, +S2. absent: Bradycardia, Tachycardia , Irregular Rhythm, JVD, Systolic Murmur - GI/Abdominal Exam GI & Abdominal Exam: Hyperactive Bowel Sounds, Soft, Tenderness. absent: Distended, Firm, Guarding, Hernia, Mass, Pulsatile Mass, Rebound, Rigid - Rectal Exam Rectal Exam: absent: Bloody Stool, Hemorrhoids Additional comments: No masses palpated, no skin tags, no blood seen - Extremities Exam Extremities exam: Positive for: normal inspection. Negative for: calf tenderness, pedal edema - Back Exam Back exam: NORMAL INSPECTION. CVA tenderness (R) - Neurological Exam Neurological exam: Alert, Normal Gait, Oriented x3 - Psychiatric Exam Psychiatric exam: Normal Affect, Normal Mood - Skin Skin Exam: Intact, Normal Color, Warm Additional comments: 6 inch transverse scar in suprapubic region below umbilicus Assessment and Plan - Assessment and Plan (Free Text) Assessment: (1) Abdominal pain Assessment and Plan: Surgical consult, Dr London GI consult, Dr Fine Per surgery, no immediate surgical intervention required LFTs WNL F/U Blood Cx Urine Cx - Gram negative Louie - F/U final ESR - 5 CRP - 0.21 F/U Stool Cx F/U Ova and Parasite F/U C Diff F/U Fecal leukocytes FOBT negative Meds: Ceftriaxone 1gm IVPB Q12H started 07/30 Metronidazole 500mg IVPB Q8H started 07/30 Ondansetron 4mg IVP Q4H prn Morphine 2mg IVP Q4H prn Dextrose 5%/NS at 100cc/hr Imaging: CT abd/pelvis w/ contrast 07/30: IMPRESSION: Findings suspicious for small bowel malrotation without evidence of volvulus or obstruction. Unopacified bowel loops demonstrate diffuse wall thickening noted at the mid right abdomen. The possibility of enteritis or small bowel fistula should be excluded. Further assessment of the small bowel is suggested. No evidence of free fluid free air or pneumatosis intestinalis. Status: Acute (2) Bright red blood per rectum Assessment and Plan: Hgb 13.6 on admission FOBT negative See plan for abdominal pain Status: Acute (3) Hematuria Assessment and Plan: UA on admission: 1+ ketones, 3+ blood, (+) nitrate, (+) urobilinogen, 3+ leukocyte esterase, 33 WBC, 18 RBC, 19 squamous epith cells, moderate bacteria Urine HCG (-) Ceftriaxone 1gm IVPB Q12H started 07/30 Status: Acute (4) Prophylactic measure Assessment and Plan: GI: protonix 40mg PO QD DVT: not indicated, encourage ambulation Diet: NPO for now Status: Acute
[2017-08-01] MEDS: metroNIDAZOLE IV 500 mg/100 ml 500 MG/100 ML BAG IVPB SCH ×3 (05:16→21:11)
[2017-08-01] MEDS: cefTRIAXone IV 1 gm in Dextros 50 ML IVPB SCH ×2 (06:02→19:00)
[2017-08-01 08:33] LABS: BASO % 0.5 % (0.0-2.0); EOS # 0.1 K/uL (0.0-0.7); EOS % 1.1 % (0.0-4.0); HEMATOCRIT 39.4 % (34.0-47.0); LYMPH # 1.6 K/uL (1.0-4.3); LYMPH % 23.1 % (20.0-40.0); MEAN CELL VOLUME 93.5 fL (81.0-99.0); MEAN CORPUSCULAR HEMOGLOBIN 32.5 pg (27.0-31.0); MEAN CORPUSCULAR HGB CONC 34.8 g/dL (33.0-37.0); MONO # 0.5 K/uL (0.0-0.8); MONO % 6.8 % (0.0-10.0); RED CELL DISTRIBUTION WIDTH 12.6 % (11.5-14.5)
[2017-08-01 08:47] LABS: CHLORIDE 102 mmol/L (98-107)
[2017-08-01 08:48] LABS: POTASSIUM 3.3 mmol/L (3.6-5.2); SODIUM 134 mmol/L (132-148)
[2017-08-01 08:50] LABS: CARBON DIOXIDE 22 mmol/L (22-30); GFR AFRICAN-AMERICAN > 60
[2017-08-01 08:51] LABS: ALB/GLOB RATIO 1.2 (1.0-2.1); ALKALINE PHOSPHATASE 44 U/L (38-126); ALT/SGPT 29 U/L (9-52); AST/SGOT 18 U/L (14-36); BILIRUBIN,TOTAL 0.7 mg/dL (0.2-1.3); BLOOD UREA NITROGEN 7 mg/dL (7-17); CALCIUM 8.2 mg/dl (8.6-10.4); GLUCOSE,RANDOM 76 mg/dL (65-105); TOTAL PROTEIN 6.9 g/dL (6.3-8.3)
--- NOTE | 2017-08-01 08:55 | CP.PCM.PN ---
<DanetteKevan - Last Filed: 08/02/17 10:16> Subjective - Date & Time of Evaluation Date of Evaluation: 08/01/17 Time of Evaluation: 08:50 - Subjective Subjective: General Surgery Note for Dr. London Patient seen and examined at bedside. No acute event overnight. Patient states she her pain has improved. She is asking for real food to eat. She is toleraing liquid diet. Denies fever/chills, nausea/vomiting, or diarrhea. Objective - Vital Signs/Intake and Output Vital Signs (last 24 hours): Temp Pulse Resp BP Pulse Ox 98.1 F 50 L 20 96/53 L 97 08/01/17 08:00 08/01/17 08:00 08/01/17 08:00 08/01/17 08:00 08/01/17 08:00 Intake and Output: 08/01/17 08/01/17 06:59 18:59 Intake Total 650 Balance 650 - Medications Medications: Current Medications Metronidazole (Flagyl) 500 mg in 100 mls @ 100 mls/hr IVPB Q8 [facility] Last Admin: 08/01/17 05:16 Dose: 100 mls/hr Ceftriaxone Sodium (Rocephin Iv 1 Gm Duplex) 50 mls @ 100 mls/hr IVPB Q12H [facility] Last Admin: 08/01/17 06:02 Dose: 100 mls/hr Morphine Sulfate (Morphine) 2 mg IVP Q4 PRN PRN Reason: Pain, Mild (1-3) Last Admin: 08/01/17 06:45 Dose: 2 mg Ondansetron HCl (Zofran Inj) 4 mg IVP Q4H PRN PRN Reason: Nausea/Vomiting Last Admin: 08/01/17 06:51 Dose: 4 mg Pneumococcal Polyvalent Vaccine (Pneumovax 23 Vaccine) 0.5 ml IM .ONCE ONE Stop: 08/01/17 10:01 - Labs Labs: 08/01/17 08:14 07/31/17 08:07 - Constitutional Appears: No Acute Distress - Head Exam Head Exam: ATRAUMATIC, NORMOCEPHALIC - Eye Exam Eye Exam: Normal appearance - ENT Exam ENT Exam: Mucous Membranes Moist - Respiratory Exam Respiratory Exam: NORMAL BREATHING PATTERN - Cardiovascular Exam Cardiovascular Exam: REGULAR RHYTHM - GI/Abdominal Exam GI & Abdominal Exam: Soft, Tenderness (mild, suprapubic and LLQ). absent: Distended, Firm, Guarding, Rigid, Rebound - Extremities Exam Extremities Exam: Normal Capillary Refill - Back Exam Back Exam: absent: CVA tenderness (L), CVA tenderness (R) - Neurological Exam Neurological Exam: Alert, Awake, Oriented x3 - Psychiatric Exam Psychiatric exam: Normal Affect, Normal Mood - Skin Skin Exam: Dry, Intact, Normal Color, Warm Assessment and Plan - Assessment and Plan (Free Text) Plan: 27F with abdominal pain and UTI, urine culture grew E.Coli -Liquid diet, ADAT -IV fluids -Analgesics/Antiemetics PRN -f/u GI recommendations -No plans for surgical intervention -Will discuss with Dr. Lita Samaniego PGY1 <Aditya London - Last Filed: 08/04/17 19:07> Objective - Vital Signs/Intake and Output Vital Signs (last 24 hours): Temp Pulse Resp BP Pulse Ox 98.1 F 61 20 98/60 L 100 08/02/17 07:53 08/02/17 07:53 08/02/17 07:53 08/02/17 07:53 08/04/17 11:30 - Labs Labs: 08/02/17 07:50 08/02/17 07:50 Attending/Attestation - Attestation I have personally seen and examined this patient.: Yes I have fully participated in the care of the patient.: Yes I have reviewed all pertinent clinical information, including history, physical exam and plan: Yes Notes (Text): Pt was seen and examined at bedside Agree with above note and assessment Pt with Enteritis and UTI Mild abdminnal wall tenderness Labs reviewed continue with current mx Plan d.w pt in detail
[2017-08-01] MEDS ORDERED: Pneumococcal 23-Valent Vaccine IM ONE (10:00)
[2017-08-01] MEDS ORDERED: Influenza Vaccine 60 mcg/0.5 mL SYR (4YR UP) IM ONE (10:00)
[2017-08-01] MEDS ORDERED: Potassium Chloride 20 mEq ER Tab PO ONE (10:08)
--- NOTE | 2017-08-01 11:16 | CP.PCM.PN ---
Subjective - Date & Time of Evaluation Date of Evaluation: 08/01/17 Time of Evaluation: 11:00 - Subjective Subjective: Patient was seen and examined by me She reports she still has some abdominal tenderness however much better than before. She reports she has tolerated CLD and wants to try more so we will advance today. She + urine E coli, it is sensitive to the rocephin IV she is getting. She report urinating is ok now, also no longer seeing blood in urine. She tells me there is still some blood in her stool. Pending GI evaluation at this moment. Objective - Vital Signs/Intake and Output Vital Signs (last 24 hours): Temp Pulse Resp BP Pulse Ox 98.1 F 50 L 20 96/53 L 97 08/01/17 08:00 08/01/17 08:00 08/01/17 08:00 08/01/17 08:00 08/01/17 08:00 Intake and Output: 08/01/17 08/01/17 06:59 18:59 Intake Total 650 Balance 650 - Medications Medications: Current Medications Metronidazole (Flagyl) 500 mg in 100 mls @ 100 mls/hr IVPB Q8 [facility] Last Admin: 08/01/17 05:16 Dose: 100 mls/hr Ceftriaxone Sodium (Rocephin Iv 1 Gm Duplex) 50 mls @ 100 mls/hr IVPB Q12H [facility] Last Admin: 08/01/17 06:02 Dose: 100 mls/hr Morphine Sulfate (Morphine) 2 mg IVP Q4 PRN PRN Reason: Pain, Mild (1-3) Last Admin: 08/01/17 06:45 Dose: 2 mg Ondansetron HCl (Zofran Inj) 4 mg IVP Q4H PRN PRN Reason: Nausea/Vomiting Last Admin: 08/01/17 06:51 Dose: 4 mg - Labs Labs: 08/01/17 08:14 08/01/17 08:14 - Constitutional Appears: Well, Non-toxic, No Acute Distress - Head Exam Head Exam: NORMAL INSPECTION, NORMOCEPHALIC - Eye Exam Eye Exam: EOMI, Normal appearance - ENT Exam ENT Exam: Mucous Membranes Moist - Respiratory Exam Respiratory Exam: Clear to Ausculation Bilateral, NORMAL BREATHING PATTERN - Cardiovascular Exam Cardiovascular Exam: REGULAR RHYTHM - GI/Abdominal Exam GI & Abdominal Exam: Soft, Tenderness. absent: Bruit, Distended, Firm, Guarding , Rigid, Diminished Bowel Sounds - Neurological Exam Neurological Exam: Alert, Awake, Oriented x3 Neuro motor strength exam: Left Upper Extremity: 5, Right Upper Extremity: 5, Left Lower Extremity: 5, Right Lower Extremity: 5 - Skin Skin Exam: Normal Color, Warm Assessment and Plan - Assessment and Plan (Free Text) Assessment: (1) Abdominal pain Assessment and Plan: 08/01: The tenderness is now much less than before. She has been tolerating CLD and wants to advance diet so will advance. She has been having BMs as well. Surgery has been following, currently no surgery indicated at this moment. She is on IV abx and also + E coli in culture today. It is sensitive to rocephin IV that she is alraedy on. We are pending on stool studies at this time. Per surgery, no immediate surgical intervention required LFTs WNL F/U Blood Cx Urine Cx - Gram negative Louie - F/U final ESR - 5 CRP - 0.21 F/U Stool Cx F/U Ova and Parasite F/U C Diff F/U Fecal leukocytes FOBT negative Meds: Ceftriaxone 1gm IVPB Q12H started 07/30 Metronidazole 500mg IVPB Q8H started 07/30 Ondansetron 4mg IVP Q4H prn Morphine 2mg IVP Q4H prn Dextrose 5%/NS at 100cc/hr Imaging: CT abd/pelvis w/ contrast 07/30: IMPRESSION: Findings suspicious for small bowel malrotation without evidence of volvulus or obstruction. Unopacified bowel loops demonstrate diffuse wall thickening noted at the mid right abdomen. The possibility of enteritis or small bowel fistula should be excluded. Further assessment of the small bowel is suggested. No evidence of free fluid free air or pneumatosis intestinalis. (2) Bright red blood per rectum Assessment and Plan: 08/01: follow Hgb, pending additional stool studies to return. Hgb 13.6 on admission FOBT negative See plan for abdominal pain (3) UTI Assessment and Plan: 08/01: + E coli, sensitive to rocephin IV. Recheck the UA and also the Urine culture UA on admission: 1+ ketones, 3+ blood, (+) nitrate, (+) urobilinogen, 3+ leukocyte esterase, 33 WBC, 18 RBC, 19 squamous epith cells, moderate bacteria Urine HCG (-) Ceftriaxone 1gm IVPB Q12H started 07/30 (4) Prophylactic measure Assessment and Plan: GI: protonix 40mg PO QD DVT: not indicated, encourage ambulation Diet: Full liquid diet for now
[2017-08-01 14:29] LABS: URINE BILIRUBIN NEGATIVE (NEGATIVE); URINE COLOR Colorless (YELLOW); URINE GLUCOSE (UA) NORMAL (Normal); URINE KETONE NEGATIVE (NEGATIVE); URINE LEUKOCYTE ESTERASE NEG Leu/uL (Negative); URINE PROTEIN NEGATIVE (NEGATIVE); URINE UROBILINOGEN NORMAL mg/dL (0.2-1.0); WBC URINE 1 /hpf (0-5)
[2017-08-01 14:30] LABS: RBC URINE 2 /hpf (0-3); URINE BLOOD 1+ (NEGATIVE)
[2017-08-02] MEDS: metroNIDAZOLE IV 500 mg/100 ml 500 MG/100 ML BAG IVPB SCH ×2 (05:19→13:42)
[2017-08-02] MEDS: cefTRIAXone IV 1 gm in Dextros 50 ML IVPB SCH (06:28)
[2017-08-02 07:54] VITALS: BP 98/60; PULSE 61; TEMP 98.1
[2017-08-02 08:11] LABS: BASO % 0.6 % (0.0-2.0); EOS # 0.2 K/uL (0.0-0.7); EOS % 2.7 % (0.0-4.0); HEMATOCRIT 43.5 % (34.0-47.0); LYMPH # 2.3 K/uL (1.0-4.3); LYMPH % 34.6 % (20.0-40.0); MEAN CORPUSCULAR HEMOGLOBIN 32.3 pg (27.0-31.0); MEAN PLATELET VOLUME 8.1 fL (7.2-11.7); MONO # 0.5 K/uL (0.0-0.8); RED CELL DISTRIBUTION WIDTH 12.8 % (11.5-14.5); WHITE BLOOD COUNT 6.6 K/uL (4.8-10.8)
[2017-08-02 08:43] LABS: CHLORIDE 101 mmol/L (98-107); POTASSIUM 4.4 mmol/L (3.6-5.2); SODIUM 135 mmol/L (132-148)
[2017-08-02 08:46] LABS: ALB/GLOB RATIO 1.6 (1.0-2.1); ALKALINE PHOSPHATASE 45 U/L (38-126); ALT/SGPT 29 U/L (9-52); AST/SGOT 23 U/L (14-36); BILIRUBIN,TOTAL 0.8 mg/dL (0.2-1.3); BLOOD UREA NITROGEN 11 mg/dL (7-17); CALCIUM 8.6 mg/dl (8.6-10.4); CARBON DIOXIDE 23 mmol/L (22-30); GFR AFRICAN-AMERICAN > 60; GLUCOSE,RANDOM 79 mg/dL (65-105); TOTAL PROTEIN 6.6 g/dL (6.3-8.3)
--- NOTE | 2017-08-02 14:40 | CP.PCM.DIS ---
Provider - Provider Date of Admission: 07/30/17 18:23 Attending physician: Sadi Hoyos MD Primary care physician: PMD: none Consults: General Surgery: Dr London GI: Dr Fine Time Spent in preparation of Discharge (in minutes): 45 Diagnosis - Discharge Diagnosis (1) Abdominal pain Status: Resolved Priority: High (2) Bright red blood per rectum Status: Resolved Priority: High (3) Hematuria Status: Resolved Priority: High (4) Prophylactic measure Status: Resolved Priority: Low (5) UTI (urinary tract infection) Status: Resolved Priority: High Hospital Course - Lab Results Lab Results: Micro Results 07/30/17 21:50 Blood Blood Culture - Preliminary NO GROWTH AFTER 48 HOURS 07/30/17 21:20 Blood Blood Culture - Preliminary NO GROWTH AFTER 48 HOURS 07/30/17 21:30 Urine,Clean Catch Urine Culture - Final Escherichia Coli Most Recent Lab Values WBC 6.6 K/uL (4.8-10.8) 08/02/17 07:50 RBC 4.58 Mil/uL (3.80-5.20) 08/02/17 07:50 Hgb 14.8 g/dL (11.0-16.0) 08/02/17 07:50 Hct 43.5 % (34.0-47.0) 08/02/17 07:50 MCV 95.0 fL (81.0-99.0) 08/02/17 07:50 MCH 32.3 pg (27.0-31.0) H 08/02/17 07:50 MCHC 34.0 g/dL (33.0-37.0) 08/02/17 07:50 RDW 12.8 % (11.5-14.5) 08/02/17 07:50 Plt Count 347 K/uL (130-400) 08/02/17 07:50 MPV 8.1 fL (7.2-11.7) 08/02/17 07:50 Neut % (Auto) 54.1 % (50.0-75.0) 08/02/17 07:50 Lymph % (Auto) 34.6 % (20.0-40.0) 08/02/17 07:50 [place] % (Auto) 8.0 % (0.0-10.0) 08/02/17 07:50 Eos % (Auto) 2.7 % (0.0-4.0) 08/02/17 07:50 Baso % (Auto) 0.6 % (0.0-2.0) 08/02/17 07:50 Neut # 3.6 K/uL (1.8-7.0) 08/02/17 07:50 Lymph # 2.3 K/uL (1.0-4.3) 08/02/17 07:50 [place] # 0.5 K/uL (0.0-0.8) 08/02/17 07:50 Eos # 0.2 K/uL (0.0-0.7) 08/02/17 07:50 Baso # 0.0 K/uL (0.0-0.2) 08/02/17 07:50 ESR 5 mm/hr (0-20) 07/30/17 21:50 Sodium 135 mmol/L (132-148) 08/02/17 07:50 Potassium 4.4 mmol/L (3.6-5.2) 08/02/17 07:50 Chloride 101 mmol/L (98-107) 08/02/17 07:50 Carbon Dioxide 23 mmol/L (22-30) 08/02/17 07:50 Anion Gap 15 (10-20) 08/02/17 07:50 BUN 11 mg/dL (7-17) 08/02/17 07:50 Creatinine 0.8 mg/dL (0.7-1.2) 08/02/17 07:50 Est GFR ( Amer) > 60 08/02/17 07:50 Est GFR (Non-Af Amer) > 60 08/02/17 07:50 Random Glucose 79 mg/dL (65-105) 08/02/17 07:50 Calcium 8.6 mg/dl (8.6-10.4) 08/02/17 07:50 Total Bilirubin 0.8 mg/dL (0.2-1.3) 08/02/17 07:50 AST 23 U/L (14-36) 08/02/17 07:50 ALT 29 U/L (9-52) 08/02/17 07:50 Alkaline Phosphatase 45 U/L (38-126) 08/02/17 07:50 Total Creatine Kinase 68 U/L (30-135) 08/01/17 19:45 CK-MB (Mass) 0.29 ng/mL (0.0-3.38) 08/01/17 19:45 Troponin I, Quant < 0.0120 ng/mL (0.00-0.120) 08/01/17 19:45 C-React Prot High Sens 0.21 mg/L (1.00-3.00) L 07/30/17 21:50 Total Protein 6.6 g/dL (6.3-8.3) 08/02/17 07:50 Albumin 4.1 g/dL (3.5-5.0) 08/02/17 07:50 Globulin 2.5 gm/dL (2.2-3.9) 08/02/17 07:50 Albumin/Globulin Ratio 1.6 (1.0-2.1) 08/02/17 07:50 Lipase 31 U/L (23-300) 07/30/17 14:53 Urine Color Colorless (YELLOW) 08/01/17 14:21 Urine Clarity Clear (Clear) 08/01/17 14:21 Urine pH 7.0 (5.0-8.0) 08/01/17 14:21 Ur Specific [place] 1.002 (1.003-1.030) L 08/01/17 14:21 Urine Protein Negative mg/dL (NEGATIVE) 08/01/17 14:21 Urine Glucose (UA) Normal mg/dL (Normal) 08/01/17 14:21 Urine Ketones Negative mg/dL (NEGATIVE) 08/01/17 14:21 Urine Blood 1+ (NEGATIVE) H 08/01/17 14:21 Urine Nitrate Negative (NEGATIVE) 08/01/17 14:21 Urine Bilirubin Negative (NEGATIVE) 08/01/17 14:21 Urine Urobilinogen Normal mg/dL (0.2-1.0) 08/01/17 14:21 Ur Leukocyte Esterase Neg Jose/uL (Negative) 08/01/17 14:21 Urine WBC (Auto) 1 /hpf (0-5) 08/01/17 14:21 Urine RBC (Auto) 2 /hpf (0-3) 08/01/17 14:21 Ur Squamous Epith Cells 1 /hpf (0-5) 08/01/17 14:21 Urine Bacteria Mod (<OCC) H 07/30/17 15:34 Urine HCG, Qual Negative (NEGATIVE) 07/30/17 15:34 Stool Occult Blood Negative (NEGATIVE) 07/30/17 16:17 - Hospital Course Hospital Course: CC "my belly hurts" This is a 27 year old female who presents to the ER today with sharp right lower quadrant pain, rated a 10/10, which began this morning while she was at work. She reports that in the past 24 hours she had 5 episodes of bloody diarrhea and 2 episodes of blood in her urine. Given the bloody diarrhea and hematuria and degree of pain in the RLQ she decided to come to the ER today. 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 She reports that she's had bouts of mild RLQ and LLQ pain all her life which she attributes to her surgery at and to having a "sensitive stomach". She says this mild chronic intermittent abdominal pain is provoked by eating spicy foods, by the fact that she is lactose intolerant or being dehydrated, but that it usually passes on its own. She reports that in 2008 she went to a hospital for similar complaints and was told that she may have Crohns Disease but she never followed-up with a specialist. She endorses a 20 lb weight loss in the past 3 months which she attributes to increasing frequency of diarrhea, loss of appetite, and stress as she is currently going thru a divorce. She also reports fatigue for the past few weeks. She denies fever, chills, rashes, arthritis, eye disturbances, nsaid use, recent travel, sick contacts, or feces or gas exiting her vagina. 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 HOSPITAL COURSE: This is a patient with a history of malrotation of the bowels which was corrected with surgery at (see HPI). She was also told she might have crohn's disease 9 years ago but never followed-up with a specialist. General surgery and GI were consulted. Her lab work was benign with the exception of a dirty UA (positive for nitrate, blood, leuk esterase, wbc's, rbc's, bacteria) and a urine culture which was positive for E.Coli (her blood culture showed no growth). She never had an elevated wbc and was afebrile throughout her stay. In addition, her Hgb, HCG, ESR, lipase, CRP, LFTs, BUN, Cr were all normal. Her FOBT was also negative. Her diet was advanced and she was requesting solid foods by her 2nd day. Surgery and GI had no immediate interventions and it was recommended that she schedule an outpatient colonoscopy to rule out IBD. She was given ceftriaxone and flagyl antibiotics. Her repeat UA showed much improvement. She did not have symptoms of bloody diarrhea or hematuria during her stay. CT abd/pelvis w/ contrast imaging results are shown below, the diffuse bowel thickening seen on CT could be of a chronic nature given prior surgery to correct malrotation. Stool studies (culture, ova and parasite, cdiff , fecal leukocytes) were ordered but could not be collected. She was given instructions to establish care with [facility] so she may attain a referral to GI who can direct further care such as outpatient colonoscopy. CT abd/pelvis w/ contrast 07/30: IMPRESSION: Findings suspicious for small bowel malrotation without evidence of volvulus or obstruction. Unopacified bowel loops demonstrate diffuse wall thickening noted at the mid right abdomen. The possibility of enteritis or small bowel fistula should be excluded. Further assessment of the small bowel is suggested. No evidence of free fluid free air or pneumatosis intestinalis. Discharge Exam - Head Exam Head Exam: ATRAUMATIC, NORMOCEPHALIC - Additional Findings Additional findings: - Additional Findings Additional findings: - Constitutional Appears: Well, Non-toxic, No Acute Distress - Head Exam Head Exam: ATRAUMATIC, NORMAL INSPECTION - Eye Exam Eye Exam: EOMI Pupil Exam: PERRL - ENT Exam ENT Exam: Mucous Membranes Moist - Neck Exam Neck exam: Positive for: Normal Inspection. Negative for: Lymphadenopathy, Tenderness - Respiratory Exam Respiratory Exam: Clear to Auscultation Bilateral, NORMAL BREATHING PATTERN. absent: Rales, Rhonchi, Wheezes - Cardiovascular Exam Cardiovascular Exam: REGULAR RHYTHM, +S1, +S2. absent: Bradycardia, Tachycardia , Irregular Rhythm, JVD, Systolic Murmur - GI/Abdominal Exam GI & Abdominal Exam: Hyperactive Bowel Sounds, Soft, Tenderness. absent: Distended, Firm, Guarding, Hernia, Mass, Pulsatile Mass, Rebound, Rigid - Rectal Exam Rectal Exam: absent: Bloody Stool, Hemorrhoids Additional comments: performed on admission: No masses palpated, no skin tags, no blood seen - Extremities Exam Extremities exam: Positive for: normal inspection. Negative for: calf tenderness, pedal edema - Back Exam Back exam: NORMAL INSPECTION. CVA tenderness (R) - Neurological Exam Neurological exam: Alert, Normal Gait, Oriented x3 - Psychiatric Exam Psychiatric exam: Normal Affect, Normal Mood - Skin Skin Exam: Intact, Normal Color, Warm Additional comments: 6 inch transverse scar in suprapubic region below umbilicus Discharge Plan - Discharge Medications Prescriptions: Ciprofloxacin [Cipro] 250 mg PO BID 4 Days #8 tab - Follow Up Plan Condition: GOOD Disposition: HOME/ ROUTINE Additional Instructions: Patient is medically stable for discharge. Patient will be given a script for an antibiotic which she should take as instructed: Ciprofloxacin 250mg 1 tablet taken twice a day (morning and evening) for 4 days total (Patient should eat 1 probiotic yogurt per day while she is taking this antibiotic which will reduce the side effect of diarrhea) Given patient's medical history, she should establish care with a PMD. She was instructed to establish care at the [facility] ( ) and apply for [place] [facility] (she was told how to find the [place] [facility] office) . Once she makes an appointment she will be able to attain a referral to a GI specialist whom she should also follow-up with. If symptoms worsen or return, patient should return to the ER. Referrals: Janeth Marino MD [Staff Provider] -
--- NOTE | 2017-08-02 15:58 | CP.PCM.PN ---
<Kevan Samaniego - Last Filed: 08/02/17 15:55> Subjective - Date & Time of Evaluation Date of Evaluation: 08/02/17 Time of Evaluation: 07:00 - Subjective Subjective: General Surgery Note for Dr. London Patient seen and examined at bedside. No acute event overnight. Patient states she her pain has resolved. She is tolerating regular diet. Ambulating wihtout difficulty and urinating normally. She is aymptomatic, Denies fever/chills, nausea/vomiting, or diarrhea. Objective - Vital Signs/Intake and Output Vital Signs (last 24 hours): Temp Pulse Resp BP Pulse Ox 98.1 F 61 20 98/60 L 97 08/02/17 07:53 08/02/17 07:53 08/02/17 07:53 08/02/17 07:53 08/02/17 07:53 Intake and Output: 08/02/17 08/02/17 06:59 18:59 Intake Total 390 240 Balance 390 240 - Medications Medications: Current Medications Metronidazole (Flagyl) 500 mg in 100 mls @ 100 mls/hr IVPB Q8 [facility] Last Admin: 08/02/17 13:42 Dose: Not Given Ceftriaxone Sodium (Rocephin Iv 1 Gm Duplex) 50 mls @ 100 mls/hr IVPB Q12H [facility] Last Admin: 08/02/17 06:28 Dose: 100 mls/hr Morphine Sulfate (Morphine) 2 mg IVP Q4 PRN PRN Reason: Pain, Mild (1-3) Last Admin: 08/01/17 06:45 Dose: 2 mg Ondansetron HCl (Zofran Inj) 4 mg IVP Q4H PRN PRN Reason: Nausea/Vomiting Last Admin: 08/01/17 06:51 Dose: 4 mg - Labs Labs: 08/02/17 07:50 08/02/17 07:50 - Constitutional Appears: Well, No Acute Distress - Eye Exam Eye Exam: EOMI, Normal appearance Pupil Exam: PERRL - ENT Exam ENT Exam: Mucous Membranes Moist - Respiratory Exam Respiratory Exam: Clear to Ausculation Bilateral, NORMAL BREATHING PATTERN - Cardiovascular Exam Cardiovascular Exam: REGULAR RHYTHM, +S1, +S2 - GI/Abdominal Exam GI & Abdominal Exam: Soft, Normal Bowel Sounds. absent: Distended, Firm, Guarding, Tenderness, Rebound - Extremities Exam Extremities Exam: Normal Capillary Refill - Back Exam Back Exam: absent: CVA tenderness (L), CVA tenderness (R) - Neurological Exam Neurological Exam: Alert, Awake, CN II-XII Intact, Oriented x3 - Psychiatric Exam Psychiatric exam: Normal Affect, Normal Mood - Skin Skin Exam: Dry, Intact, Normal Color, Warm Assessment and Plan - Assessment and Plan (Free Text) Plan: 27F with abdominal pain and UTI -Clear for discharge from surgical standpoint -follow GI recommendations -No plans for surgical intervention -Discussed with Dr. Lita Samaniego PGY1 <Aditya London - Last Filed: 08/04/17 19:09> Objective - Vital Signs/Intake and Output Vital Signs (last 24 hours): Temp Pulse Resp BP Pulse Ox 98.1 F 61 20 98/60 L 100 08/02/17 07:53 08/02/17 07:53 08/02/17 07:53 08/02/17 07:53 08/04/17 11:30 - Labs Labs: 08/02/17 07:50 08/02/17 07:50 Attending/Attestation - Attestation I have personally seen and examined this patient.: Yes I have fully participated in the care of the patient.: Yes I have reviewed all pertinent clinical information, including history, physical exam and plan: Yes Notes (Text): Pt was seen and examined at bedside Agree with above note and assessment Pt is improved clinically Can be DC home with Po antibiotics Plan d.w pt in detail. Plan d.w primary team
--- NOTE | 2017-08-02 21:41 | CARD ---
APPROVED REPORT EKG Measurement Heart [id number] <Conclusion> Marked sinus bradycardia Abnormal ECG
--- NOTE | 2017-08-02 21:46 | CON ---
DATE: 08/02/2017 LOCATION: 371, bed B. HISTORY OF PRESENT ILLNESS: I was called for GI consultation by the admitting medical staff. 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 This is a 27 years old female who was admitted with abdominal pain and recurrent episode of some bloody diarrhea. Patient today has stable vital signs. No abdominal pain, no rectal bleeding, no hematuria. H and H since admission has been completely normal and SMA-18 today is completely normal as well as recently done urinalysis. No nausea or vomiting, tolerating oral intake well, despite CAT scan report. Patient experienced her desire to go home today and her vital signs are stable, afebrile. Patient refused colonoscopy during this hospitalization and to be scheduled as outpatient. Advised to follow up in my office as needed. IMPRESSION: 1. Acute colitis, the possibility of Crohn's disease to be considered according to the radiologic study results. 2. Patient has no history of Crohn's disease, but a small bowel rotation since admission, treated surgically at age 4 months, apparently. SUGGESTIONS: 1. Continue current management. 2. Patient maybe discharged home as per her desire. She has normal bowel movement. No rectal bleeding for the last 24 to 48 hours. No hematuria. No nausea, vomiting and no abdominal distention. Physical examination was basically benign. 3. Again, the patient was advised to follow up in my office strongly. Thank you for letting me participate in your patient's case management. Anali Smith MD cc: Anali Smith MD Patient chart
[2017-08-04 11:26] VITALS: O2SAT 100
== END 2017-08-02 17:45 | disposition home or self-care (01) | DRG 386 ==
LOC: C.ER 13:40 → C.9E 18:23 → C.3T 20:37
PROVIDERS: ADMIT Internal Medicine; ATTEND Internal Medicine
DX: K50.00 Crohn's disease of small intestine without complications (principal); N39.0 Urinary tract infection, site not specified; Q43.3 Congenital malformations of intestinal fixation; K59.00 Constipation, unspecified; K52.9 Noninfective gastroenteritis and colitis, unspecified; B96.20 Unspecified Escherichia coli [E. coli] as the cause of diseases classified elsewhere; F17.210 Nicotine dependence, cigarettes, uncomplicated; Z87.738 Personal history of other specified (corrected) congenital malformations of digestive system